=== PATIENT | female | born 1990 | race Caucasian/White ===

== ENCOUNTER 2020-11-26 23:52 | Emergency (ER) | payer MEDICAID, OTHER ==
[~2020-11-26] VITALS: Ht 154.9 cm; Wt 83.9 kg
[2020-11-27] MEDS ORDERED: ONDANSETRON HCL 4 MG/2 ML VIAL IV ONE (00:30)
[2020-11-27 01:53] LABS: Basophils # (auto) 0 10 ^3/uL (0-0.2); Basophils % (auto) 0.2 % (0.0-2.0); Eosinophils # (auto) 0.2 10 ^3/uL (0-0.8); Eosinophils % (auto) 1.3 % (0.0-7.0); Hematocrit 34.6 % (36.0-46.0); Lymphocytes % (auto) 22.8 % (10.0-50.0); Mean Corpuscular Hgb Conc. 34.7 g/dL (32.0-36.0); Mean Corpuscular Volume 89.4 fL (80.0-100.0); Monocytes # (auto) 0.9 10 ^3/uL (0-1.3); Monocytes % (auto) 6.7 % (0.0-12.0); Neutrophils # (auto) 9.2 10 ^3/uL (1.6-8.6); Nucleated Red Blood Cells % 0.1 %; Platelet Count (auto) 411 10^3/uL (140-450); Red Blood Cells 3.87 10^6/uL (4.0-5.20); Red Cell Distribution Width 12.3 % (11.8-14.3); White Blood Cell 13.3 10^3/uL (4.4-10.8)
[2020-11-27 02:15] LABS: Albumin 3.4 g/dL (3.4-5.0); BUN/Creatinine Ratio 16.9; Calcium 8.9 mg/dL (8.5-10.1); Potassium 3.7 mmol/L (3.5-5.1)
[2020-11-27 02:18] LABS: Bilirubin, Total 0.3 mg/dL (0.2-1.0); Total Protein 6.9 g/dL (6.4-8.2)
[2020-11-27 02:44] LABS: INR 1.08 (0.9-1.15); Partial Thromboplastin Time 25.8 sec (23.0-31.2)
[2020-11-27] MEDS ORDERED: METHYLERGONOVINE MALEATE 0.2 MG/ML AMP IM ONE (05:30)
[2020-11-27 06:00] VITALS: BP 100/67
== END 2020-11-27 05:30 | disposition home or self-care (01) ==
LOC: ER 23:52
DX: O03.4 Incomplete spontaneous abortion without complication (principal)
CPT/HCPCS: 36415; 76801; 76817; 80053; 84702; 85025; 85610; 85730; 86850; 86900; 86901